=== PATIENT | female | born 1965 | race Hispanic/Latino ===

== ENCOUNTER → 2017-06-26 | Outpatient (CLI) | payer OTHER ==
--- NOTE | 2017-07-05 08:26 | Diagnostic Imaging Report ---
#[id number] - MGSCR[facility] #BILATERAL DIGITAL SCREENING MAMMOGRAM WITH CAD: 06/26/2017 CLINICAL: Routine screening. Comparison is made to exam dated: 04/04/2016 mammogram - [facility]. Current study contains 4 films. The tissue of both breasts is heterogeneously dense. This may lower the sensitivity of mammography. Current study was also evaluated with a Computer Aided Detection (CAD) system. There is a heterogeneous calcification in the left breast at 1 o'clock middle depth which appears new. Additional benign calcification in the left breast. Small nodule in the left breast is benign appearing and stable. No other significant masses, calcifications, or other findings are seen in either breast. IMPRESSION: INCOMPLETE: NEEDS ADDITIONAL IMAGING EVALUATION The heterogeneous calcification in the left breast is indeterminate. Spot magnification views are recommended. The patient will be contacted by the Mammography Department to schedule this appointment. Chico Bustillo Jr., D.O. cw/:07/04/2017 12:50:23 Automatic Beading Lathe Operator: Mirian LOPEZ(Judd)(Sally), [facility] letter sent: Additional Imaging Needed Mammogram BI-RADS: 0 Indeterminate
== END ==
LOC: MAMMO 10:38
PROVIDERS: ATTEND Obstetrics & Gynecology
DX: Z12.31 Encounter for screening mammogram for malignant neoplasm of breast (principal)

== ENCOUNTER → 2017-07-20 | Outpatient (CLI) | payer OTHER ==
--- NOTE | 2017-07-20 18:11 | Diagnostic Imaging Report ---
#[id number] - MGDXLT #UNILATERAL LEFT DIGITAL DIAGNOSTIC MAMMOGRAM WITH SPOT COMPRESSION AND MAGNIFICATION: 07/20/2017 Comparison is made to exams dated: 06/26/2017 mammogram - [facility], 04/04/2016 mammogram - [facility]. Current study contains 3 films. The tissue of the left breast is heterogeneously dense. This may lower the sensitivity of mammography. Magnification views reveal the heterogenous calcification in the upper outer aspect of the left breast. Since these are new compared to the 2016 study they should be viewed as suspicous and biopsy is recommended. IMPRESSION: SUSPICIOUS OF MALIGNANCY New indeterminate calcifications in the left breast require a stereotactic biopsy. A phone call was made to the physician's office and the need for a biopsy discussed with Moraima in Dr. Dunne's office. The patient was notified of the need for biopsy. Chico Bustillo Jr., D.O. cw/:07/20/2017 15:20:24 Fluoroscope Operator: Mirian NOGUEIRA)(Sally), [facility] letter sent: Biopsy Required Mammogram BI-RADS: 4 Suspicious abnormality
== END ==
LOC: MAMMO 14:32
PROVIDERS: ATTEND Obstetrics & Gynecology
DX: R92.8 Other abnormal and inconclusive findings on diagnostic imaging of breast (principal)

== ENCOUNTER → 2017-08-15 | Outpatient (CLI) | payer OTHER ==
[~2017-08-15] MED LIST: GELATIN SPONGE 12-7MM ONE; LIDOCAINE 1% 5ML-MPF INJ ONE; LIDOCAINE 2% /EPINEPHRINE 20 ML SDV INJ ONE; LIDOCAINE HCL 1% LOCAL INJ 20 ML VIAL ONE; SODIUM CHLORIDE 0.9% 250ML 250 ML ONE
--- NOTE | 2017-08-17 16:32 | Diagnostic Imaging Report ---
THIS REPORT HAS BEEN AMENDED. #[id number] - [id number] STEREOTACTIC GUIDED BIOPSY: 08/15/2017 PATIENT CONSENT: According to [facility] requirements, a time out was performed, correct site was localized and the patient was consented. PROCEDURE DESCRIPTION: A stereotactic biopsy of calcifications in the left breast was requested. The procedure was fully discussed with the patient including benefits, risks and alternatives. Risk of bleeding and infection was explained. The need for a post biopsy clip was discussed. It was performed with written informed consent. A monkey breeder out was taken prior to beginning the biopsy to confirm patient and procedure, including laterality. The new calcifications were targeted stereotactically using an upright biopsy machine. The area over the site was prepared in the standard sterile fashion. Local anesthsia was achieved with 1% Lidocaine. The biopsy probe was advanced to the lesion and vacuum assisted core biopsy samples obtained. A micromarker was placed. After removal of the probe there was continued bleeding requiring prolonged manual compression. In addition, the probe site was packed with gelfoam and the incision closed with 4 interrupted Vicryl 4-0 sutures. A pressure dressing was also applied. A specimen radiograph shows calcifications within the cores, concordant with biopsy images. Following the procedure, the patient was discharged from the breast area. Full post biopsy instructions were provided and acknowledged by the patient. She was instructed to return in 48 hours for wound check and followup left breast mammograms. Correlation is made to exams dated: 07/20/2017 mammogram and 06/26/2017 mammogram - [facility]. IMPRESSION: STEREOTACTIC GUIDED BIOPSY Chico torres/brit:08/17/2017 15:35:51 Railway Patrol Officer: Mirian LOPEZ(Judd)(Sally), [facility] [id number] AMENDMENT: 08/21/2017 Chico Bustillo Jr., D.O. Pathology result from the stereotactic biopsy performed on 08/15/2017 is NEGATIVE for malignancy.
== END ==
LOC: MAMMO 13:08
PROVIDERS: ATTEND Obstetrics & Gynecology
DX: R92.1 Mammographic calcification found on diagnostic imaging of breast (principal)
CPT/HCPCS: 19081; 76098; 88305; J2001 ×2; J7050; 88342

== ENCOUNTER → 2020-03-30 | Outpatient (CLI) | payer OTHER | LOC: MAMMO 14:00 | PROVIDERS: ATTEND Obstetrics & Gynecology | DX: Z12.31 Encounter for screening mammogram for malignant neoplasm of breast (principal) | CPT/HCPCS: 77067 ==